=== PATIENT | female | born 1945 ===

== ENCOUNTER 2021-04-08 06:31 | Day surgery (SDC) | payer MEDICARE, BC ==
[~2021-04-08 06:31] MED LIST: Lidocaine 1%/Sod Bicarbonate in NS 8.4% 1 ML Syringe IDERM PRN; Scopolamine 1.5 MG Transdermal Patch TRDERM PRN; Sodium Chloride 0.9% 10 ML Syringe FLUSH SCH
[2021-04-08] MEDS: Lactated Ringers 1,000 ML IV SCH ×2 (06:45→09:50)
[2021-04-08] MEDS ORDERED: Bupivacaine 0.5% 30 ML SDV ONE ×2 (06:50→08:46)
[2021-04-08] MEDS ORDERED: Succinylcholine/Sod PF 100 MG/5 ML SYRINGE IV ONE (07:21)
[2021-04-08] MEDS ORDERED: fentaNYL 100 MCG/2 ML SDV ONE (07:21)
[2021-04-08] MEDS ORDERED: ceFAZolin 1 GM Vial ONE (07:21)
[2021-04-08] MEDS ORDERED: Propofol 200 MG/20 ML SDV ONE (07:21)
[2021-04-08] MEDS ORDERED: Lidocaine 2% 100 MG/5 ML Syringe ONE (07:21)
[2021-04-08] MEDS ORDERED: Ondansetron 4 MG/2 ML SDV ONE (07:41)
[2021-04-08] MEDS ORDERED: Dexamethasone 4 MG/ML 5 ML MDV ONE (07:41)
[2021-04-08] MEDS ORDERED: Rocuronium 50 MG/5 ML Vial ONE (08:34)
[2021-04-08] MEDS ORDERED: Ondansetron 4 MG/2 ML SDV IVPUSH PRN (08:39)
[2021-04-08] MEDS: fentaNYL 100 MCG/2 ML SDV IVPUSH PRN ×2 (09:25→09:45)
[2021-04-08] MEDS: HYDROmorphone 0.5 MG/0.5 ML Syringe IVPUSH PRN ×2 (09:35→10:04)
[2021-04-08] MEDS ORDERED: oxyCODONE 5 MG Tab PO ONE (10:30)
[2021-04-08 15:05] VITALS: BP 114/76; PULSE 84
== END 2021-04-08 13:44 | disposition home or self-care (01) ==
LOC: JD.SDS 06:31
PROVIDERS: ATTEND Surgery
DX: K43.9 Ventral hernia without obstruction or gangrene (principal); I48.91 Unspecified atrial fibrillation; I10 Essential (primary) hypertension; E78.00 Pure hypercholesterolemia, unspecified; M81.0 Age-related osteoporosis without current pathological fracture; E11.9 Type 2 diabetes mellitus without complications; Z88.2 Allergy status to sulfonamides; Z88.8 Allergy status to other drugs, medicaments and biological substances; Z79.899 Other long term (current) drug therapy; Z79.01 Long term (current) use of anticoagulants; Z98.890 Other specified postprocedural states
CPT/HCPCS: 49652; 82947; A9270; C1781; J0330; J0690; J1100; J1170; J2405; J2704; J2710; J3010; J3490; J7120; 00790